=== PATIENT | female | born 1985 | race American Indian/Alaskan Native ===

== ENCOUNTER 2024-03-28 18:19 | Emergency (ER) | payer SELFPAY ==
[2024-03-28 18:26] VITALS: BMI 25.8
[2024-03-28] MEDS ORDERED: ONDANSETRON 4 MG TABLET PO ONE (19:47)
[2024-03-28] MEDS ORDERED: SUCRALFATE 1 GM TABLET (FP) PO ONE (19:58)
[2024-03-28] MEDS: ACETAMINOPHEN 1000 MG/100 ML BAG IVPB ONE (20:08)
[2024-03-28] MEDS: SODIUM CHLORIDE 0.9% 500 ML INFUS.BAG IV ONE (20:08)
[2024-03-28] MEDS: PANTOPRAZOLE SODIUM 40 MG VIAL IVPUSH ONE (20:09)
[2024-03-28 20:16] LABS: BASO % 0.4 % (0-2.0); EOS % 4.6 % (0-4.5); HEMATOCRIT 42.4 % (32.4-45.2); HEMOGLOBIN 14.9 GM/dL (10.7-15.3); LYMPH % 13.7 % (8-40); MCH 29.6 pg (25.7-33.7); MCHC 35.2 g/dl (32.0-36.0); MEAN PLT VOLUME 7.4 fl (7.5-11.1); MONO % 5.9 % (3.8-10.2); NEUT % 75.4 % (42.8-82.8); PLATELET COUNT 262 10^3/uL (134-434); RBC 5.05 M/mm3 (3.60-5.2); WHITE BLOOD COUNT 9.9 K/mm3 (4.0-10.0)
[2024-03-28] MEDS ORDERED: ACETAMINOPHEN INJECTION 100 ML IVPB ONE (20:31)
[2024-03-28] MEDS ORDERED: PANTOPRAZOLE SODIUM 40 MG VIAL ONE (20:31)
[2024-03-28] MEDS: ONDANSETRON 4 MG/2 ML VIAL IVPB ONE (20:32)
[2024-03-28] MEDS ORDERED: ONDANSETRON 4 MG/2 ML VIAL ONE (20:35)
[2024-03-28] MEDS: ONDANSETRON 4 MG/2 ML VIAL IVPUSH ONE (20:43)
[2024-03-28 20:45] LABS: POTASSIUM 4.6 mmol/L (3.5-5.1)
[2024-03-28 20:47] LABS: ALBUMIN 4.2 g/dl (3.4-5.0); BLOOD UREA NITROGEN 9.4 mg/dL (7-18); CALCIUM 8.9 mg/dL (8.5-10.1)
[2024-03-28 20:50] LABS: CREATININE 0.7 mg/dL (0.55-1.3)
[2024-03-28 20:52] LABS: BILIRUBIN,TOTAL 0.4 mg/dL (0.2-1); TOT PROT 8.1 g/dl (6.4-8.2)
[2024-03-28] MEDS ORDERED: METOCLOPRAMIDE HCL INJECTION 10 MG/2 ML VIAL ONE (21:41)
[2024-03-28] MEDS: METOCLOPRAMIDE HCL INJECTION 10 MG/2 ML VIAL IVPB ONE (21:41)
[2024-03-28] MEDS: diphenhydrAMINE HCL 25 MG CAPSULE (FP) PO ONE (22:41)
[2024-03-28] MEDS ORDERED: diphenhydrAMINE HCL 25 MG CAPSULE (FP) PO ONE (22:42)
[2024-03-28 22:59] VITALS: BP 120/73; PULSE 76; RESP 18; TEMP 97.8
== END 2024-03-28 22:59 | disposition home or self-care (01) ==
LOC: JER 18:19
PROC: 3E033NZ Introduction of Analgesics, Hypnotics, Sedatives into Peripheral Vein, Percutaneous Approach (ICD-10-PCS; principal; 2024-03-28)
PROC: 3E033GC Introduction of Other Therapeutic Substance into Peripheral Vein, Percutaneous Approach (ICD-10-PCS; 2024-03-28)
PROC: 3E033GC Introduction of Other Therapeutic Substance into Peripheral Vein, Percutaneous Approach (ICD-10-PCS; 2024-03-28)
PROC: 3E033GC Introduction of Other Therapeutic Substance into Peripheral Vein, Percutaneous Approach (ICD-10-PCS; 2024-03-28)
DX: R11.2 Nausea with vomiting, unspecified (principal); R19.7 Diarrhea, unspecified; R21 Rash and other nonspecific skin eruption; L29.9 Pruritus, unspecified
CPT/HCPCS: 36415; 76705-TC; 80053; 83690; 84703; 85025; 93005; 93010; 99285-25; J0131

== ENCOUNTER 2024-04-17 14:09 | Emergency (ER) | payer OTHER ==
[2024-04-17 14:40] VITALS: BP 99/70; PULSE 78; RESP 18; TEMP 98.1; BMI 28.1
[2024-04-17] MEDS ORDERED: CYCLOBENZAPRINE HCL 10 MG TABLET (FP) ONE (15:05)
[2024-04-17] MEDS ORDERED: LIDOCAINE 4% PATCH TP ONE (15:05)
[2024-04-17] MEDS ORDERED: IBUPROFEN 600 MG TABLET (FP) PO ONE (15:05)
[2024-04-17] MEDS ORDERED: ACETAMINOPHEN 500 MG TABLET (FP) ONE (15:06)
[2024-04-17] MEDS: LIDOCAINE 4% PATCH TP ONE (15:12)
[2024-04-17] MEDS: CYCLOBENZAPRINE HCL 10 MG TABLET (FP) PO ONE (15:12)
[2024-04-17] MEDS: IBUPROFEN 600 MG TABLET (FP) PO ONE (15:12)
[2024-04-17] MEDS: ACETAMINOPHEN 500 MG TABLET (FP) PO ONE (15:13)
[2024-04-17] MEDS ORDERED: LIDOCAINE PATCH REMOVAL MC SCH (22:00)
== END 2024-04-17 16:53 | disposition home or self-care (01) ==
LOC: JER 14:09 → JERFT 14:09
DX: S16.1XXA Strain of muscle, fascia and tendon at neck level, initial encounter (principal); X58.XXXA Exposure to other specified factors, initial encounter
CPT/HCPCS: 72125-TC; 99284-25